=== PATIENT | female | born 1955 | race Caucasian/White ===

== ENCOUNTER 2022-01-11 | Outpatient (REF) | payer MEDICARE, SELFPAY ==
--- NOTE | ~2022-01-11 | XR_ITS ---
EXAMINATION: XR SHOULDER, LEFT CLINICAL INFORMATION: Pain COMPARISON: None TECHNIQUE: Three views of the left shoulder. FINDINGS: Bone alignment is normal. No fracture or dislocation. Normal glenohumeral joint. Mild joint space narrowing at the acromioclavicular joint. No soft tissue calcification. XR/XR shoulder LT min 2V IMPRESSION: Mild arthritis at the acromioclavicular joint.
== END 2022-01-11 00:01 ==
LOC: HO.HOSX
PROVIDERS: Visit Provider Physician Assistant
DX: M75.102 Unspecified rotator cuff tear or rupture of left shoulder, not specified as traumatic (principal)
CPT/HCPCS: 20610; 73030; 99202; J1040

== ENCOUNTER 2022-01-20 09:58 | Outpatient (REF) | payer MEDICARE, SELFPAY ==
--- NOTE | ~2022-01-20 | XR_ITS ---
EXAMINATION: BILATERAL AP KNEE STANDING AND RIGHT KNEE CLINICAL INFORMATION: Pain COMPARISON: None TECHNIQUE: AP bilateral knee standing. Right knee 2 views. FINDINGS: AP bilateral knee: There is minimal loss of medial and lateral compartment joint space both knees. There is mild genu valgus deformities of both knees. The patellofemoral compartment joint space is reduced with periarticular spurring. No abnormal joint effusion seen. There are no loose bodies. No visible acute fracture or dislocation seen. Right knee: There is loss of patellar femoral compartment joint space. There are no loose bodies. No joint effusion seen. No acute fracture or dislocation. XR/XR knee standing BI IMPRESSION: 1. Mild degenerative changes patellofemoral compartment right knee. No visible acute fracture, dislocation or subluxation seen. 2. Mild degenerative changes medial and lateral compartment right knee.
--- NOTE | ~2022-01-20 | XR_ITS ---
EXAMINATION: BILATERAL AP KNEE STANDING AND RIGHT KNEE CLINICAL INFORMATION: Pain COMPARISON: None TECHNIQUE: AP bilateral knee standing. Right knee 2 views. FINDINGS: AP bilateral knee: There is minimal loss of medial and lateral compartment joint space both knees. There is mild genu valgus deformities of both knees. The patellofemoral compartment joint space is reduced with periarticular spurring. No abnormal joint effusion seen. There are no loose bodies. No visible acute fracture or dislocation seen. Right knee: There is loss of patellar femoral compartment joint space. There are no loose bodies. No joint effusion seen. No acute fracture or dislocation. XR/XR knee RT 2V IMPRESSION: 1. Mild degenerative changes patellofemoral compartment right knee. No visible acute fracture, dislocation or subluxation seen. 2. Mild degenerative changes medial and lateral compartment right knee.
== END 2022-01-20 09:59 | disposition home or self-care (01) ==
LOC: HO.HOSX 09:58
PROVIDERS: Visit Provider Orthopaedic Surgery
DX: M17.11 Unilateral primary osteoarthritis, right knee (principal); M21.061 Valgus deformity, not elsewhere classified, right knee
CPT/HCPCS: 20610; 73560; 73565; 99212; J1100

== ENCOUNTER 2022-04-14 14:00 | Outpatient (RCR) | payer MEDICARE, SELFPAY ==
--- NOTE | 2022-03-01 16:31 | MHC.PT.EP ---
[facility] [place] Office [place] Office [place] Office [address] [phone] F: [phone] F: [phone] F: [phone] F: [phone] Physical Therapy Plan of Care Date of Evaluation: Date of Surgery: N/A Diagnosis: unilateral primary osteoarthritis, R knee (RC) Assessment: pt is a 66 y/o female presenting to physical therapy w/ referring diagnosis of unilateral primary osteoarthritis, R knee. Impairments include pain, decreased range of motion, decreased strength, impaired functional mobility, impaired postural awareness, and altered ambulation mechanics. pt is a good candidate for skilled PT due to age, potential remediation of impairments, typyical disease/condition progression and prognosis, comorbidities, and motivation. pt would benefit from skilled PT intervention to provide a tailored strengthening and stretching exercise program, functional training, gait training, postural re-training, neuromuscular re-education, modalities as needed for pain, equipment safety demonstration. Frequency and Duration: The patient will be seen 2x/wk for 4 wks Short Term Goals: pt will be I w/ HEP to promote self-management of condition. pt will improve R hip ABD by 1 MMT grade to promote neutral knee alignment w/ stairs. 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 pt will report a statistically significant improvement in self-reported outcome measure, LEFI, to promote return to PLOF. Treatment Plan: Modalities to reduce pain, spasms and effusion. Manual therapy to restore motion and function. Therapeutic exercise to improve strength and flexibility. Neuromuscular re-education for posture and balance. Therapeutic activities to return to functional activities of daily living. Electronically signed by: Paula Jaramillo PT, DPT Please sign and return to therapist. Thank you for your referral.
--- NOTE | 2022-04-19 14:21 | MHC.PT.DC ---
[facility] [place] [facility] [place] Office [place] Office [address] [phone] F: [phone] F: [phone] F: [phone] F: [phone] Physical Therapy Discharge Report Diagnosis: unilateral primary osteoarthritis, R knee (RC) Date of Surgery: N/A Date of Evaluation: 03/01/22 Date of Discharge: 04/19/22 Treatments to Date: 4 Cancellations to Date: 9 No Shows to Date: 0 Discharge Status: Improved Function Independent with HEP Discharge Summary: The patient overall is reporting an improvement in her knee pain frequency and severity. She recently was given some new exercises to work on that caused lateral knee pain so these were discontinued. Otherwise, her other home exercise program was well tolerated. She is independent with her home exercise program and is going to be discharged today. She is coming for an evaluation of her shoulder in a couple weeks. Electronically signed by: Paula Jaramillo PT, DPT Please sign and return to therapist. Thank you for your referral.
== END 2022-04-19 14:21 | disposition home or self-care (01) ==
LOC: HO.PT 14:00
PROVIDERS: PCP Internal Medicine; Visit Provider Orthopaedic Surgery
DX: M17.11 Unilateral primary osteoarthritis, right knee (principal); M21.061 Valgus deformity, not elsewhere classified, right knee
CPT/HCPCS: 97110; 97162; 97530